=== PATIENT | female | born 1950 | race Caucasian/White ===

== ENCOUNTER 2022-01-03 13:51 | Outpatient (RCR) | payer MEDICARE, OTHER, SELFPAY ==
--- NOTE | 2022-01-04 07:42 | HP.OTEVAL ---
Patient's Visit Information ELOISA BLANK is a 71 year old F, referred to Occupational Therapy by Dr. James Luna MD, with a diagnosis of lymphedema. Date of Evaluation: 01/03/22 Occupational Therapist: Zohreh Arias, OTR/L, CHT - Subjective This 71 year old female was seen for OT eval with dx of LE lymphedema/edema- pt states she has noticed swelling in her legs for 9 months- pt is on a water pill daily- pt states she sits with her feet up- pt sleeps in a recliner- pt just came off of O2 during the day- pt states she is on it at night. pt states she gets pins and needle sensation in her feet- pt states she has a pair of compression socks but she can not get them on.(they are 15 years old) and they hurt her legs. pt would like to know what she can do to help with the swelling. - Lymphedema (Circumferential Measure) Mid-foot: right 22cm left 22.5cm Ankle: right 30cm left 30.5cm Lower calf: right 36cm left 37cm Largest calf: right 50cm left 50cm Below knee: right 46cm left 46.5cm - Lower Limb Functional Index Lower Extremity Functional Score: 40 - Goals Demonstrate a 20% reduction in edema by d/c: Yes Demonstrate adequate knowledge of self-massage by 2nd week: Yes Demonstrate adequate knowledge skin care/prec by 2nd week: Yes Demonstrate adequate knowledge therapeutic exercises by d/c: Yes Select approp compression garment w/donning/care/wear by d/c: Yes Voice need to replace compression garment every 4-6mo by dc: Yes - Rehabilitation General Assessment: pt demo edema in BLE and would benefit from skilled OT services to ed. pt on self mtg of lymphedema. Today therapist ed. pt on need for compression socks or Velcro closure compression garment 20-30 mmHg, skin care- lymph stimulation exercise, and self manual lymph massage- pt was given handouts and demo understanding and receptive to getting compression socks to initiate mtg. of her leg swelling. pt to return in 2 weeks to ensure proper fit on compression socks- therapist also ed. pt to get new compression socks every 4-6 months to keep mtg of her swelling- pt agree to POC Rehabilitation Potential: Fair - Anticipated Interventions Education re Diagnosis, Education re Life-long lymphedema Management, Education re Skin Care and Precautions, Education re Self Massage Techniques, Education re Correct Donning Tech,Care&Wearing Sched Comp Garments, Home Program - Visit Plan TEXT: Thank you for the opportunity to evaluate your patient. For Medicare and Medicare HMO plans, please review the plan of care and approve it. It will need to be FAXED BACK to us at [phone] for Medicare purposes. Please let me know if there are questions or concerns regarding this plan of care. Physician Signature: Date:
== END 2022-01-03 19:00 | disposition home or self-care (01) ==
LOC: OT 13:51
PROVIDERS: PCP Family Medicine; Referring Provider Family Medicine; Visit Provider Family Medicine
DX: R60.9 Edema, unspecified (principal)
CPT/HCPCS: 97166; 97530